=== PATIENT | female | born 1990 | race African-American/Black ===

== ENCOUNTER 2016-06-15 19:29 | Emergency (ER) | payer MEDICAID ==
[~2016-06-15] VITALS: Ht 167.6 cm; Wt 107.4 kg
[2016-06-15 19:59] VITALS: BP 113/82; PULSE 88; RESP 18; TEMP 98.7; O2SAT 100
--- NOTE | 2016-06-15 20:29 | PD ---
HPI Chief Complaint: [employer] Problem/Complaint Time Seen by Provider: 20:11 Travel History International Travel<30 days: No Contact w/Intl Traveler<30days: No Traveled to known affect area: No History of Present Illness HPI This 25-year-old female is complaining of heavy vaginal bleeding. She is visiting her sister. She lives in [place]. Before coming down here she went for a Pap smear and was told that she had bacterial vaginosis and Trichomonas. She was put on Flagyl. Her last dose of Flagyl was today. She says that last night she started having some bleeding and she is having heavy bleeding throughout the day. She is not sure if she is . She is 4 para 1 and is had several miscarriages. She is having some crampy lower abdominal pain which is not severe. She says she has been passing clots. PFSH Past Medical History ?: Unknown LMP: BEGIN OF MAY Social History Tobacco Use: No Allergies-Medications (Allergen,Severity, Reaction): Coded Allergies: No Known Allergies (Unverified , 06/15/16) Reported Meds & Prescriptions Reported Meds & Active Scripts Active Reported Gabapentin 800 Mg Tab 800 Mg PO TID Modafinil 200 Mg Tab 200 Mg PO DAILY Lexapro (Escitalopram Oxalate) 10 Mg Tab 10 Mg PO DAILY Buspirone (Buspirone HCl) 30 Mg Tab 30 Mg PO BID Lamictal (Lamotrigine) 25 Mg Tab 20 Mg PO DAILY Review of Systems General / Constitutional: No: Fever, Chills Eyes: No: Diploplia, Blurred Vision HENT: No: Headaches, Vertigo Cardiovascular: No: Chest Pain or Discomfort, Palpitations Respiratory: No: Cough, Shortness of Breath Gastrointestinal: No: Nausea, Vomiting Genitourinary: Positive: Vaginal Bleeding, No: Urgency, Frequency Musculoskeletal: No: Myalgias, Arthralgias Skin: No Rash Neurologic: No: Weakness, Dizziness Psychiatric: No: Anxiety Hematologic/Lymphatic: No: Easy Bruising Physical Exam Narrative GENERAL: Well-developed female SKIN: Focused skin assessment warm/dry. HEAD: Atraumatic. Normocephalic. EYES: Pupils equal and round. No scleral icterus. No injection or drainage. ENT: No nasal bleeding or discharge. Mucous membranes pink and moist. NECK: Trachea midline. No JVD. CARDIOVASCULAR: Regular rate and rhythm. No murmur appreciated. RESPIRATORY: No accessory muscle use. Clear to auscultation. Breath sounds equal bilaterally. GASTROINTESTINAL: Abdomen soft, non-tender, nondistended. Hepatic and splenic margins not palpable. Pelvic: Cervical os is closed. There is blood in the vaginal vault but there is not heavy active bleeding. Uterus mild tenderness. MUSCULOSKELETAL: No obvious deformities. No clubbing. No cyanosis. No edema. NEUROLOGICAL: Awake and alert. No obvious cranial nerve deficits. Motor grossly within normal limits. Normal speech. PSYCHIATRIC: Appropriate mood and affect; insight and judgment normal. Data Data Last Documented VS Vital Signs Date Time Temp Pulse Resp B/P Pulse Ox O2 Delivery O2 Flow Rate FiO2 06/15/16 19:59 98.7 88 18 113/82 100 Orders Complete Blood Count With Diff (06/15/16 20:26) Beta Hcg (Quant/Titer) (06/15/16 20:26) Labs Laboratory Tests Test 06/15/16 20:40 White Blood Count 10.6 TH/MM3 Red Blood Count 4.16 MIL/MM3 Hemoglobin 12.4 GM/DL Hematocrit 37.3 % Mean Corpuscular Volume 89.7 FL Mean Corpuscular Hemoglobin 29.7 PG Mean Corpuscular Hemoglobin 33.2 % Concent Red Cell Distribution Width 12.4 % Platelet Count 299 TH/MM3 Mean Platelet Volume 8.4 FL Neutrophils (%) (Auto) 55.5 % Lymphocytes (%) (Auto) 33.3 % Monocytes (%) (Auto) 7.9 % Eosinophils (%) (Auto) 2.9 % Basophils (%) (Auto) 0.4 % Neutrophils # (Auto) 6.0 TH/MM3 Lymphocytes # (Auto) 3.5 TH/MM3 Monocytes # (Auto) 0.8 TH/MM3 Eosinophils # (Auto) 0.3 TH/MM3 Basophils # (Auto) 0.0 TH/MM3 CBC Comment DIFF FINAL Differential Comment Human Chorionic Gonadotropin, LESS THAN 1 Quant MIU/ML MDM Medical Decision Making Medical Screen Exam Complete: Yes Emergency Medical Condition: Yes Medical Record Reviewed: Yes Differential Diagnosis Differential includes threatened AB, , menstrual bleeding Narrative Course Her hemoglobin is 10. Her test is negative. Patient is stable for discharge. This appears to be menstrual bleeding Diagnosis Primary Impression: Heavy menstrual bleeding Qualified Code: N92.0 - Menorrhagia with regular cycle Disposition: 01 DISCHARGE HOME Condition: Stable Gurvinder Hargrove MD June 15, 2016 20:29
[2016-06-15] MEDS ORDERED: LEXA10TA PO (20:34)
[2016-06-15] MEDS ORDERED: MODA200T12 PO (20:34)
[2016-06-15] MEDS ORDERED: GABA800T PO (20:34)
[2016-06-15] MEDS ORDERED: BUSP30TA PO (20:34)
[2016-06-15] MEDS ORDERED: LAMO25 PO (20:34)
[2016-06-15 20:52] LABS: BASOPHIL % 0.4 % (0.0-2.0); EOSINOPHIL # 0.3 TH/MM3 (0-0.4); EOSINOPHIL % 2.9 % (0.0-4.0); HEMATOCRIT 37.3 % (35.0-46.0); HEMO FLAGS DIFF FINAL; LYMPH % 33.3 % (9.0-44.0); LYMPHOCYTE # 3.5 TH/MM3 (1.0-4.8); MEAN CELL VOLUME 89.7 FL (80.0-100.0); MEAN CORPUSCULAR HEMOGLOBIN 29.7 PG (27.0-34.0); MEAN CORPUSCULAR HGB CONC 33.2 % (32.0-36.0); MONO % 7.9 % (0.0-8.0); NEUT % 55.5 % (16.0-70.0); PLATELET COUNT 299 TH/MM3 (150-450); RED BLOOD COUNT 4.16 MIL/MM3 (4.00-5.30); RED CELL DISTRIBUTION WIDTH 12.4 % (11.6-17.2); WHITE BLOOD COUNT 10.6 TH/MM3 (4.0-11.0)
[2016-06-15 21:13] LABS: BETA HCG QUANT LESS THAN 1 MIU/ML (0-5)
[2016-06-15 21:55] VITALS: BP 116/61; PULSE 84; RESP 16; O2SAT 100
== END 2016-06-15 22:36 | disposition home or self-care (01) ==
LOC: PHED 19:29
DX: N92.0 Excessive and frequent menstruation with regular cycle (principal)
CPT/HCPCS: 84702; 85025; 99284

== ENCOUNTER 2016-07-29 17:45 | Emergency (ER) | payer MEDICAID ==
[~2016-07-29] VITALS: Ht 167.6 cm; Wt 105.7 kg
[~2016-07-29 17:45] MED LIST: BUSP30TA PO; GABA800T PO; LAMO25 PO; LEXA10TA PO; MODA200T12 PO
[2016-07-29 17:57] VITALS: BP 107/76; PULSE 94; RESP 16; TEMP 98.7; O2SAT 99
[2016-07-29] MEDS ORDERED: IBUP800T23 PO (18:28)
[2016-07-29] MEDS ORDERED: PENI250T PO (18:28)
--- NOTE | 2016-07-29 18:28 | PD ---
HPI Chief Complaint: Oral / Dental Pain or Problem Time Seen by Provider: 18:10 Travel History International Travel<30 days: No Contact w/Intl Traveler<30days: No Traveled to known affect area: No History of Present Illness HPI 25-year-old female presents emergency department for evaluation of left upper dental pain 1 day. Patient reports the pain as sharp, constant, nonradiating, exacerbated by chewing, unrelieved by OTC Aleve. Severity 8 out of 10. She denies fever or chills, difficulty swallowing, or any other medical complaint. PFSH Past Medical History Bipolar Disorder: Yes Anxiety: Yes Depression: Yes Diminished Hearing: No Musculoskeletal: Yes (Low back pain) Neurologic: Yes (Narcolepsy ) Tetanus Vaccination: Unknown Influenza Vaccination: No ?: Not LMP: 06/23/16 Dilation and Curettage (D&C): Yes Past Surgical History Surgical History: No Previous Surgery Social History Alcohol Use: Yes (Occ.) Tobacco Use: No Substance Use: No Allergies-Medications (Allergen,Severity, Reaction): Coded Allergies: No Known Allergies (Unverified , 07/29/16) Reported Meds & Prescriptions Reported Meds & Active Scripts Active Reported Gabapentin 800 Mg Tab 800 Mg PO TID Modafinil 200 Mg Tab 200 Mg PO DAILY Lexapro (Escitalopram Oxalate) 10 Mg Tab 10 Mg PO DAILY Buspirone (Buspirone HCl) 30 Mg Tab 30 Mg PO BID Lamictal (Lamotrigine) 25 Mg Tab 20 Mg PO DAILY Review of Systems Except as stated in HPI: all other systems reviewed are Neg Physical Exam Narrative GENERAL: Well-nourished, well-developed patient. SKIN: Focused skin assessment warm/dry. HEAD: Normocephalic. EYES: No scleral icterus. No injection or drainage. MOUTH: Tooth #16 tender with surrounding gum mild erythema NECK: Supple, trachea midline. No JVD or lymphadenopathy. CARDIOVASCULAR: Regular rate and rhythm without murmurs, gallops, or rubs. RESPIRATORY: Breath sounds equal bilaterally. No accessory muscle use. MUSCULOSKELETAL: No cyanosis, or edema. Data Data Last Documented VS Vital Signs Date Time Temp Pulse Resp B/P Pulse Ox O2 Delivery O2 Flow Rate FiO2 07/29/16 17:57 98.7 94 16 107/76 99 MDM Medical Decision Making Medical Screen Exam Complete: Yes Emergency Medical Condition: Yes Differential Diagnosis Dental caries, dental infection, dental abscess Narrative Course 25 old female since emergency department for evaluation of left upper dental pain 1 day. On exam patient is found to have tooth #16 which is tender and has mild surrounding gum erythema. Patient will be put on antibiotics instructed follow-up with her dentist. Diagnosis Primary Impression: Pain, dental Referrals: Dentist Additional Instructions: Make an appointment for follow-up with her dentist. Scripts Ibuprofen 800 Mg [id number] Mg PO Q8H PRN (Pain/Inflammation) #30 TAB Prov:Yuli Mcelroy 07/29/16 Penicillin V Potassium 250 Mg [id number] Mg PO Q6H #28 TAB Prov:Yuli Mcelroy 07/29/16 Disposition: 01 DISCHARGE HOME Condition: Stable Yuli Mcelroy Jul 29, 2016 18:28
== END 2016-07-29 18:42 | disposition home or self-care (01) ==
LOC: PHEFT 17:45
DX: K08.89 Other specified disorders of teeth and supporting structures (principal)
CPT/HCPCS: 99283